=== PATIENT | female | born 1970 | race Caucasian/White ===

== ENCOUNTER → 2017-02-13 | Outpatient (CLI) | payer OTHER ==
[~2017-02-13] MED LIST: AVPAK AZITHROM250 MG PO; LEVOTHYROXINE0.05 M3 NG; PREDNISONE 20MG20 MG PO; TESSALON PERLE100 MG PO
[2017-02-13 10:00] LABS: AEROMONAS NOT DETECTED (NOT DETECTE); ASTROVIRUS NOT DETECTED (NOT DETECTE); CYCLOSPORA CAYETANENSIS NOT DETECTED (NOT DETECTE); E COLI O157 NOT DETECTED (NOT DETECTE); ENTEROAGGREGATIVE E COLI NOT DETECTED (NOT DETECTE); ENTEROTOXIGENIC E COLI NOT DETECTED (NOT DETECTE); NOROVIRUS NOT DETECTED (NOT DETECTE); SAPOVIRUS NOT DETECTED (NOT DETECTE); SHIGA-LIKE TOXIN PROD. E COLI NOT DETECTED (NOT DETECTE); SHIGELLA/ENTEROINVASIVE E COLI NOT DETECTED (NOT DETECTE); VIBRIO CHOLERAE NOT DETECTED (NOT DETECTE)
[2017-02-13 12:25] LABS: ENTEROPATHOGENIC E COLI DETECTED (NOT DETECTE)
== END ==
LOC: LAB 09:58
PROVIDERS: Nurse Practitioner
DX: R19.7 Diarrhea, unspecified (principal)

== ENCOUNTER → 2017-02-25 | Outpatient (CLI) | payer OTHER ==
--- NOTE | 2017-02-25 13:47 | RADIOLOGY REPORT PS360 ---
KUB (SINGLE VIEW) HISTORY: CHRONIC DIARRHEA, ABD PAIN ORDERING PHYSICIAN: REBA MOSLEY PATIENT AGE: 47 years COMPARISON: None FINDINGS: The bowel gas pattern is unremarkable. No obvious obstruction.. No abnormal calcifications are evident. No obvious renal or ureteral calculi.. No acute bony anomalies evident. There are multiple pelvic calcifications likely related to phleboliths. Tubal ligation clips are also suspected. Please correlate clinically IMPRESSION: Negative KUB, no acute finding
[2017-03-03 18:40] LABS: Calprotectin, Fecal <16 ug/g (0-120)
[2017-03-04 14:40] LABS: Pancreatic Elastase, Fecal 318 (>200)
== END ==
LOC: LAB 10:57
PROVIDERS: Physician Assistant Medical
DX: K52.9 Noninfective gastroenteritis and colitis, unspecified (principal); R10.9 Unspecified abdominal pain